=== PATIENT | female | born 1965 | race Caucasian/White ===

== ENCOUNTER 2021-02-09 16:07 | Emergency (ER) | payer OTHER ==
[~2021-02-09 16:07] MED LIST: HYDROCODON-ACE1 EAC2 PO; SENOKOT-S TABL1 EACH PO
[2021-02-09 17:30] LABS: HEMOGLOBIN 16.1 gm/dl (12.3-15.3); RED BLOOD COUNT 4.94 M/UL (4.00-5.10); WHITE BLOOD COUNT 9.4 K/UL (4.5-11.0)
[2021-02-09 17:52] LABS: BUN/CREATININE RATIO 9 (0-10)
[2021-02-09] MEDS ORDERED: HYDROCODON-ACE1 EAC4 PO (20:36)
== END 2021-02-09 21:40 | disposition home or self-care (01) ==
LOC: ER1 16:07
PROVIDERS: Nurse Practitioner
DX: S06.0X0A Concussion without loss of consciousness, initial encounter (principal); M25.562 Pain in left knee; I10 Essential (primary) hypertension; J44.9 Chronic obstructive pulmonary disease, unspecified; S00.83XA Contusion of other part of head, initial encounter; V49.9XXA Car occupant (driver) (passenger) injured in unspecified traffic accident, initial encounter
CPT/HCPCS: 70450; 71260; 72125; 73130; 73552; 73562; 80053; 81001; 82550; 82553; 83874; 84484; 85025; 85610; 93005; 99284; Q9967

== ENCOUNTER → 2021-06-15 | Outpatient (CLI) | payer OTHER ==
[~2021-06-15] MED LIST changes: +HYDROCODON-ACE1 EAC4 PO
== END ==
LOC: ECHO 11:58
DX: I35.0 Nonrheumatic aortic (valve) stenosis (principal)
CPT/HCPCS: ECHO; 93306; Q9957

== ENCOUNTER → 2021-10-29 | Outpatient (CLI) | payer OTHER ==
[~2021-10-29] MED LIST changes: +ASPIRIN325 MG PO; +BUTALBITAL-ASP1 EACH PO; +COREG6.25 MG PO; +DULERA 200 MCG8.8 GM INH; +KEPPRA1000 MG PO; +LIPITOR80 MG PO; +LISINOPRIL40 MG PO; +MELATONIN10 M2 PO; +NEURONTIN800 MG PO; +OMEPRAZOLE20 M1 PO; +PROAIR HFA8.5 GM INH; +ROBAXIN 750 MG750 MG PO; +SUBOXONE 8 MG-1 EACH SL
[2021-10-29 12:57] LABS: HEMOGLOBIN 14.7 gm/dl (12.3-15.3); RED BLOOD COUNT 4.68 M/UL (4.00-5.10); WHITE BLOOD COUNT 4.5 K/UL (4.5-11.0)
[2021-10-29 13:24] LABS: BUN/CREATININE RATIO 9 (0-10)
== END ==
LOC: OPSV2 10-26 10:00
PROVIDERS: Obstetrics & Gynecology
DX: Z01.818 Encounter for other preprocedural examination (principal); D06.9 Carcinoma in situ of cervix, unspecified
CPT/HCPCS: 71046; 80053; 81001; 85025; 93005